=== PATIENT | male | born 2000 | race Caucasian/White ===

== ENCOUNTER 2022-08-18 18:23 | Emergency (ER) | payer OTHER, SELFPAY ==
[2022-08-18 18:28] VITALS: BP 136/83; PULSE 74; RESP 16; TEMP 37.1; O2SAT 100
--- NOTE | 2022-08-18 19:18 | ED.SKABFB ---
HPI - Skin/Abscess/Foreign Bdy General Chief complaint: Skin/Abscess/Foreign Body Stated complaint: Cat scratch left bottome eyelid Time Seen by Provider: 08/18/22 19:00 Source: patient, family, RN notes reviewed and old records reviewed Mode of arrival: ambulatory Limitations: no limitations History of Present Illness HPI narrative: 22-year-old male who presents to [facility] accompanied by friend with injury to the left bottom eyelid from a cat scratch which occurred this evening around 1730. Patient reports that area did bleed for awhile he applied moistened paper towel to area with no acute bleeding at present time. Patient denies any visual changes, denies any pain to eye itself but does have discomfort to left bottom eyelid with noted scratch noted along eyelid from family cat. MD complaint: other (Cat scratch) Onset (ago): hour(s) (1730) Tetanus up to date: yes Location: face (left lower eyelid cat scratch) Severity scale (1-10): 5 Treatments prior to arrival: other (wet paper towel to cat scratch along left lower eyelid) Related Data Home Medications Medication Instructions Recorded Confirmed doxycycline hyclate 20 mg tablet 20 mg PO BID 08/18/22 08/18/22 Allergies Allergy/AdvReac Type Severity Reaction Status Date / Time No Known Allergies Allergy Verified 08/18/22 18:40 Review of Systems Review of Systems: CONSTITUTIONAL: Denies fever, chills, or sweats. EYES: Denies visual changes. Reports redness,, irritation, cat scratch to bottom eye lid no bleeding noted at present ENT: Denies rhinorrhea, congestion, sore throat, or otalgia. CARDIOVASCULAR: Denies chest pain, palpitations, or edema. RESPIRATORY: Denies cough or dyspnea. SKIN: Denies rash or itching. NEUROLOGIC: Denies headache All systems reviewed & are unremarkable except as noted in HPI and below PMFSH Past Medical History Medical History (Updated 08/20/22 @ 21:38 by Tamika Ortega NP) Acne Social History Social History (Updated 08/20/22 @ 21:33 by Tamika Ortega NP) Smoking status: Never smoker Alcohol intake: current Alcohol use details: rare social Substance use type: does not use Additional occupation/education comments: teacher Gender identity (if verbalized by the patient): Male Comments At time of signature, agree with nursing past medical, surgical, social and family history. There is no relevant family history pertinent to the presenting complaint Exam Narrative: GENERAL: Well-appearing, well-nourished, and in no acute distress. HEAD: Normocephalic, atraumatic. EYES: PERRLA and EOMI. Upper and lower eyelids unremarkable right eye. Left lower eyelid has cat scratch noted along lid and area inner lid, no visual changes, No periorbital cellulitis noted. no sharp pain to eye ENT: Nares clear, no rhinorrhea or epistaxis. Mucous membranes moist. NECK: Supple.no lymphadenopathy CHEST: Clear to auscultation. No respiratory distress.SAO2 100% on room air HEART: Regular rate and rhythm. No murmur heard. Normal peripheral pulses. SKIN: Warm, dry, no rash. NEURO: No focal deficits. Alert and oriented x3. Course Course Emergency Course: Patient is aware of diagnosis, understands and agrees to treatment plan. Anticipatory guidance given. Patient agrees to follow-up as directed and is aware of reasons to seek care at the emergency department. Portions of this record may have been created with voice recognition software Level of Care: Express Care Visit Vital Signs Vital signs: Vital Signs Temperature 37.1 C 08/18/22 18:28 Pulse Rate 74 08/18/22 18:28 Respiratory Rate 16 08/18/22 18:28 Blood Pressure 136/83 08/18/22 18:28 Pulse Oximetry 100 08/18/22 18:28 Oxygen Delivery Room Air 08/18/22 18:28 Temperature 37.1 C 08/18/22 18:28 Pulse Rate 74 08/18/22 18:28 Respiratory Rate 16 08/18/22 18:28 Blood Pressure 136/83 08/18/22 18:28 Pulse Oximetry 100 08/18/22 18:28
== END 2022-08-18 19:40 | disposition home or self-care (01) ==
PROVIDERS: Emergency Provider Registered Nurse
DX: S00.212A Abrasion of left eyelid and periocular area, initial encounter (principal); W55.03XA Scratched by cat, initial encounter
CPT/HCPCS: 99213; G0463

== ENCOUNTER 2023-03-03 19:16 | Emergency (ER) | payer OTHER, SELFPAY ==
--- NOTE | ~2023-03-03 | XR_ITS ---
EXAMINATION: XR chest 2V Exam Date/Time: 03/03/2023 19:50 AOC DIRECTOR COMBAT PLANS OFFICER HISTORY: COUGH, CONGESTION, CRACKLES IN BASES Comparison: None. RESULT: Lines, tubes, and devices: None. Lungs and pleura: Clear. Cardiomediastinal silhouette: Normal. Other: No acute osseous or upper abdominal finding. IMPRESSION: No acute cardiopulmonary process. Reviewed, dictated and finalized at location K. DIRECTOR COMBAT PLANS OFFICER
[2023-03-03 19:24] VITALS: BP 128/70; PULSE 90; RESP 18; TEMP 36.8; O2SAT 96
--- NOTE | 2023-03-03 20:14 | ED.URI ---
HPI - URI/Sore Throat General Chief Complaint: Upper Respiratory Infection Stated Complaint: Cough Time Seen by Provider: 03/03/23 20:15 Source: patient, RN notes reviewed and old records reviewed Mode of arrival: ambulatory Limitations: no limitations History of Present Illness HPI Narrative: 22 year old male who presents to [facility] care with complaints of 2 week duration of cough with some nasal stuffiness, reports some chills and sweats last night but none today. Patient denies any shortness of breath or any noted wheezing, denies any sore throat, ear pain or any known feverrs. Patient reports that he has been taking DayQuil,NyQuil, Delsym and also Sudafed for his symptoms. 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 MD elicited complaint: cough and nasal congestion Onset (ago): week(s) (2) Consistency: constant Able to tolerate fluids by mouth: Yes Treatments prior to arrival: other (Sudafed,Delsym, DayQuil,NyQuil) Related Data Allergies Allergy/AdvReac Type Severity Reaction Status Date / Time No Known Allergies Allergy Verified 03/03/23 19:31 Review of Systems Review of Systems: CONSTITUTIONAL: Denies malaise,some chills, sweats,no known fevers EYES: Denies visual changes, redness, or discharge. ENT: Reports rhinorrhea, congestion,no sinus pain, no otalgia and no sore throat. CARDIOVASCULAR: Denies chest pain, palpitations, or edema. RESPIRATORY: Reports cough.? Denies dyspnea. GASTROINTESTINAL: Denies abdominal pain, nausea, vomiting, diarrhea SKIN: Denies rash or itching. MUSCULOSKELETAL: Denies myalgia. NEUROLOGIC: Denies headache. All systems reviewed & are unremarkable except as noted in HPI and below PMFSH Past Medical History Medical History Acne Social History Social History Smoking status: Never smoker Alcohol intake: current Alcohol use details: rare social Substance use type: does not use Additional occupation/education comments: teacher Gender identity (if verbalized by the patient): Male Comments At time of signature, agree with nursing past medical, surgical, social and family history. There is no relevant family history pertinent to the presenting complaint Exam Narrative: GENERAL: Well-appearing, well-nourished, and in no acute distress. HEAD: Normocephalic EYES: PERRLA, conjunctivae clear ENT: Nares clear, turbinates edematous and erythematous, clear discharge. Mucous membranes moist. TM pearly mejia with dull light reflex bilaterally; no tragal tenderness. Oropharynx erythematous without lesions. Tonsils not enlarged and without exudate, no drooling, no hoarseness, no trismus, uvula midline.post nasal drainage NECK: Supple. No lymphadenopathy CHEST: Crackes left base on auscultation, breath sounds equal. No wheezing, rhonchi, rales, or stridor. No respiratory distress, speaks in full sentences.cough,SAO2 96% on room air HEART: Regular rate and rhythm. No murmur heard. SKIN: Warm, dry, no rash. NEURO: Alert and oriented x3. PSYCH: Normal mood and affect Course Course Emergency Course: Patient is aware of diagnosis, understands and agrees to treatment plan.? Anticipatory guidance given.? Patient agrees to follow-up as directed and is aware of reasons to seek care at the emergency department. Portions of this record may have been created with voice recognition software Level of Care: Express Care Visit Vital Signs Vital signs: Vital Signs Temperature 36.8 C 03/03/23 19:24 Pulse Rate 90 03/03/23 19:24 Respiratory Rate 18 03/03/23 19:24 Blood Pressure 128/70 03/03/23 19:24 Pulse Oximetry 96 03/03/23 19:24 Oxygen Delivery Room Air 03/03/23 19:24 Temperature 36.8 C 03/03/23 19:24 Pulse Rate 90 03/03/23 19:24 Respiratory Rate 18 02/17
== END 2023-03-03 20:27 | disposition home or self-care (01) ==
PROVIDERS: Emergency Provider Registered Nurse
DX: J06.9 Acute upper respiratory infection, unspecified (principal)
CPT/HCPCS: 71046; 99213; G0463

== ENCOUNTER 2023-07-24 19:43 | Emergency (ER) | payer OTHER, SELFPAY ==
[2023-07-24 19:46] VITALS: BP 138/90; PULSE 90; RESP 20; TEMP 36.7; O2SAT 100
[2023-07-24] MEDS: ONDANSETRON HCL ODT 4 MG TABLET PO (20:05)
--- NOTE | 2023-07-24 20:12 | ED.GENADULT ---
HPI - General Adult General Chief complaint: Nausea/Vomiting/Diarrhea Stated complaint: nausea/diarrhea Source: patient Mode of arrival: ambulatory Limitations: no limitations History of Present Illness HPI narrative: Patient presents for evaluation nausea, vomiting, diarrhea. He indicates his symptoms started while he was finishing up a 10 mile run. He normally exercises 5-6 days per week. He does run regularly but states it is usually about three miles at a time. He has run as far as six miles, but today's ten mile venture was a new endeavor for him. He denies creatine use or other pre workout supplements. Reports some chills and fatigue. 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 He denies any other infectious symptoms including sore throat cough, urinary symptoms. Denies significant myalgias. He states he feels sore but his soreness is consistent with how he feels after his typical workouts. Related Data Allergies Allergy/AdvReac Type Severity Reaction Status Date / Time No Known Allergies Allergy Verified 03/03/23 19:31 Review of Systems Review of Systems: CONSTITUTIONAL: Reports fatigue and chills. Denies fever EYES: Denies visual changes, redness, or discharge. ENT: Denies rhinorrhea, congestion, sore throat, or otalgia. CARDIOVASCULAR: Denies chest pain, palpitations, or edema. RESPIRATORY: Denies cough or dyspnea. GASTROINTESTINAL: Reports nausea, vomiting, diarrhea. GENITOURINARY: Denies dysuria or hematuria. SKIN: Denies rash or itching. MUSCULOSKELETAL: Reports feeling sore but denies significant myalgias. Denies back pain or joint pain NEUROLOGIC: Denies headache, numbness, dizziness, or weakness. PSYCHIATRIC: Denies anxiety or depression. [facility] Past Medical History Medical History Acne Surgical History Surgical History No pertinent past surgical history Family History Family History Mother Family history non-contributory Social History Social History Smoking status: Never smoker Alcohol intake: current Alcohol use details: rare social Substance use type: does not use Additional occupation/education comments: teacher Gender identity (if verbalized by the patient): Male Sexual Orientation (if Verbalized by the Patient): Straight or Heterosexual Spiritual care concerns: No Exam Narrative: GENERAL: Well-appearing, well-nourished, and in no acute distress. HEAD: Normocephalic, atraumatic. EYES: PERRLA and EOMI. ENT: Nares clear, no rhinorrhea or epistaxis. Mucous membranes moist. Oropharynx without tonsillar hypertrophy exudate or other lesions. Bilateral TMs pearly mejia nonbulging NECK: Supple. No adenopathy or masses. No carotid bruits or JVD CHEST: Clear to auscultation. No respiratory distress. No wheezes rales or rhonchi HEART: Regular rate and rhythm. No murmur heard. Normal peripheral pulses. ABDOMEN: Soft, nontender, nondistended, normal active bowel sounds. EXTREMITIES: Normal range of motion. No edema. SKIN: Warm, dry, no rash. NEURO: No focal deficits. Alert and oriented x3. PSYCH: Normal mood and affect. Course Course Emergency Course: This is a 23-year-old male who presented for evaluation of nausea, vomiting, diarrhea after a 10 mile run. His COVID and flu here were negative. I obtained a urine sample which showed ketones. He was given Zofran and hydrated while here. His symptoms improved. We discussed potentially go any the emergency department for labs to rule out rhabdomyolysis. However his urine not particularly dark and he does not have myalgias. We discussed the treatment being increased hydration. He feels comfortable going ho
== END 2023-07-24 20:30 | disposition home or self-care (01) ==
PROVIDERS: Emergency Provider Nurse Practitioner
DX: R11.2 Nausea with vomiting, unspecified (principal); R19.7 Diarrhea, unspecified; Z20.822 Contact with and (suspected) exposure to COVID-19
CPT/HCPCS: 81003; 87426; 87804; 99213; A9270; G0463

== ENCOUNTER 2024-02-14 18:37 | Emergency (ER) | payer OTHER, SELFPAY ==
[2024-02-14 18:55] VITALS: BP 136/77; PULSE 77; RESP 16; TEMP 36.9; O2SAT 99
--- NOTE | 2024-02-14 19:56 | ED_ITS ---
HPI - URI/Sore Throat General Chief Complaint: Upper Respiratory Infection Stated Complaint: Cough/Runny Nose Time Seen by Provider: 02/14/24 19:52 Source: patient Mode of arrival: ambulatory Limitations: no limitations History of Present Illness HPI Narrative: 23 year old male who presents to [facility] care MD elicited complaint: cough and sore throat Related Data Allergies Allergy/AdvReac Type Severity Reaction Status Date / Time No Known Allergies Allergy Verified 03/03/23 19:31 Review of Systems Review of Systems: CONSTITUTIONAL: Denies malaise, chills, sweats, or fever. EYES: Denies visual changes, redness, or discharge. ENT: Reports rhinorrhea, congestion, sinus pain, otalgia and sore throat. CARDIOVASCULAR: Denies chest pain, palpitations, or edema. RESPIRATORY: Reports cough.? Denies dyspnea. GASTROINTESTINAL: Denies abdominal pain, nausea, vomiting, diarrhea SKIN: Denies rash or itching. MUSCULOSKELETAL: Denies myalgia. NEUROLOGIC: Denies headache. All systems reviewed & are unremarkable except as noted in HPI and below PMFSH Past Medical History Medical History Acne Surgical History Surgical History No pertinent past surgical history Family History Family History Mother Family history non-contributory Social History Social History Smoking status: Never smoker Alcohol intake: current Alcohol use details: rare social Substance use type: does not use Additional occupation/education comments: teacher Gender identity (if verbalized by the patient): Male Sexual Orientation (if Verbalized by the Patient): Straight or Heterosexual Spiritual care concerns: No Comments At time of signature, agree with nursing past medical, surgical, social and family history. There is no relevant family history pertinent to the presenting complaint Exam Narrative: GENERAL: Well-appearing, well-nourished, and in no acute distress. HEAD: Normocephalic EYES: PERRLA, conjunctivae clear ENT: Nares clear, turbinates edematous and erythematous, clear discharge. Mucous membranes moist. TM pearly mejia with dull light reflex bilaterally; no tragal tenderness. Oropharynx erythematous without lesions. Tonsils not enlarged and without exudate, no drooling, no hoarseness, no trismus, uvula midline. NECK: Supple. No lymphadenopathy CHEST: Clear to auscultation, breath sounds equal. No wheezing, rhonchi, rales, or stridor. No respiratory distress, speaks in full sentences. HEART: Regular rate and rhythm. No murmur heard. SKIN: Warm, dry, no rash. NEURO: Alert and oriented x3. PSYCH: Normal mood and affect Course Course Emergency Course: Patient is aware of diagnosis, understands and agrees to treatment plan.? Anticipatory guidance given.? Patient agrees to follow-up as directed and is aware of reasons to seek care at the emergency department. Portions of this record may have been created with voice recognition software Level of Care: Express Care Visit Vital Signs Vital signs: Vital Signs Temperature 36.9 C 02/14/24 18:55 Pulse Rate 77 02/14/24 18:55 Respiratory Rate 16 02/14/24 18:55 Blood Pressure 136/77 02/14/24 18:55 Pulse Oximetry 99 02/14/24 18:55 Oxygen Delivery Room Air 02/14/24 18:55 Temperature 36.9 C 02/14/24 18:55 Pulse Rate 77 02/14/24 18:55 Respiratory Rate 16 02/14/24 18:55 Blood Pressure 136/77 02/14/24 18:55 Pulse Oximetry 99 02/14/24 18:55 Oxygen Delivery Room Air 02/14/24 18:55 Reviewed MDM - URI/Sore Throat MDM Narrative Medical decision making narrative: Differential diagnosis considered: [place] virus, strep pharyngitis, allergic rhinitis, upper respiratory tract infection, sinusitis, rhinosinusitis, nasopharyngitis. viral pharyngitis, otitis media, otitis externa, pneumonia, bronchitis, viral cough syndrome, viral syndrome, and influenza.? Exam findings show no acute concerns or changes; patient is non-toxic appearing and is in no distress.? Patient is appropriate for outpatient treatment and follow-up. Lab Data Attestation: I reviewed the patient's lab results. Critical Care Time Critical Care Time Critical Care Time: No Discharge Plan Discharge Clinical Impression: Sinusitis, acute Qualifiers: Sinusitis location: unspecified location Recurrence: non-recurrent Qualified Code(s): J01.90 - Acute sinusitis, unspecified Patient Disposition: Home, Self-Care Condition: Stable Instructions: Antibiotic Form, Sinusitis (ED) Additional Instructions: Increase fluids especially juices and water [id number] cough and cold medicine of your choice for your symptoms Zyrtec Claritin or Paige daily may include Sudafed p.r.n. Tylenol or ibuprofen for any fever pain Steroids as directed--take with food heat to the face 20-30 minutes 4-6 times a day for pain Salt water gargles, throat lozenges or throat sprays as desired Antibiotic as directed--finished the medication If your symptoms persist, change or worsen significantly before you can contact your personal physician then please, without delay, go to the emergency departm ent for further evaluation. Follow-up with PCP in 7-10 days or sooner if needed Follow up with PCP soon in regards to your blood pressure which is elevated above threshold for referral. Blood pressure above 120/80 may indicate pre- hypertension. 136/77 Prescriptions: New amoxicillin-pot clavulanate 875-125 mg tablet 1 tablet PO Q12H Qty: 20 0RF Rx Instructions: take with food Follow-up/Referrals: PHYSICIAN,NETWORK SECURITY ENGINEER [Primary Care Provider] - Time of Disposition: 20:10 Quality [place] Coma Scale Eyes: Open Verbal: Oriented and Alert Motor: Follows Commands Carlos Coma Total Score: 15
== END 2024-02-14 20:17 | disposition home or self-care (01) ==
PROVIDERS: Emergency Provider Registered Nurse
DX: J01.90 Acute sinusitis, unspecified (principal)
CPT/HCPCS: 99213; G0463